=== PATIENT | male | born 1985 ===

== ENCOUNTER 2025-06-30 20:24 | Emergency (ER) | payer OTHER ==
[~2025-06-30] VITALS: Ht 188 cm; Wt 117.9 kg
[2025-06-30 21:01] LABS: PLATELET COUNT (AUTO) 146 K/uL (152-348); RED BLOOD CELL COUNT(AUTO) 4.63 MIL/uL (4.06-5.63); RED CELL DISTRIBUTION WIDTH 17.4 % (12.1-16.2); WHITE BLOOD COUNT (AUTO) 3.1 K/uL (3.6-10.2)
[2025-06-30] MEDS ORDERED: ASPIRIN 81 MG TAB.CHEW ONE (21:05)
[2025-06-30] MEDS ORDERED: LORAZEPAM 0.5 MG TABLET ONE (21:05)
[2025-06-30] MEDS ORDERED: ACETAMINOPHEN 500 MG TABLET ONE (21:07)
[2025-06-30] MEDS: LORAZEPAM 0.5 MG TABLET PO ONE (21:09)
[2025-06-30] MEDS: ASPIRIN 81 MG TAB.CHEW PO ONE (21:09)
[2025-06-30] MEDS: ACETAMINOPHEN 500 MG TABLET PO ONE (21:10)
[2025-06-30 21:14] LABS: ASPARTATE AMINOTRANSFERASE 39 U/L (15-37); CREATININE 0.7 mg/dL (0.6-1.3); SODIUM SERUM 139 mmol/L (136-145); TOTAL PROTEIN, SERUM 7.6 g/dL (6.4-8.2); UREA NITROGEN, BLOOD 3 mg/dL (7-18)
[2025-06-30 21:34] LABS: *BILIRUBIN,URIN NEGATIVE (NEGATIVE); *BLOOD, URINE NEGATIVE (NEGATIVE); *CLARITY,URINE CLEAR (CLEAR); *COLOR,URINE YELLOW (YELLOW); *KETONES,URINE NEGATIVE (NEGATIVE); *PROTEIN,URINE NEGATIVE (NEGATIVE); *UROBILINOGEN,URINE 0.2 E.U./dl (NORMAL); LEUKOCYTE ESTERASE ,URINE NEGATIVE (NEGATIVE); NITRITE, URINE NEGATIVE (NEGATIVE); UGLUCOSE NEGATIVE (NEGATIVE)
[2025-06-30 22:43] VITALS: BP 132/88
[2025-06-30 23:38] VITALS: BP 132/88; O2SAT 99
== END 2025-06-30 23:39 | disposition home or self-care (01) ==
LOC: ER 20:40
DX: R07.89 Other chest pain (principal); R60.9 Edema, unspecified; F41.9 Anxiety disorder, unspecified; Z20.822 Contact with and (suspected) exposure to COVID-19
CPT/HCPCS: 36415; 71045; 84484; 85025; A4606; A4663; A9150